=== PATIENT | male | born 2000 | race Caucasian/White ===

== ENCOUNTER 2024-05-24 06:09 | Emergency (ER) | payer SELFPAY ==
[2024-05-24] VITALS (15 sets, daily range): BP systolic 114–131; BP diastolic 69–88; PULSE 53–74; RESP 14–16; TEMP 37.2; O2SAT 96–100
--- NOTE | ~2024-05-24 | CT_ITS ---
Non-contrast CT scan of the Abdomen and Pelvis Clinical indication: Left flank pain Technique: 2.5 mm axial scans were obtained through the abdomen and pelvis without intravenous or or al contrast. Dose reduction technique was used on this scan by utilizing automated exposure control a nd iterative reconstruction technique. The dose-length product (DLP) was 275.47 mGy-cm. Findings: Images through the lung bases reveal no abnormalities. There is no evidence of renal or ureteral calculi. The kidneys and the ureters are nondilated. The liver, spleen, pancreas, and adrenals appear normal. Cholecystectomy clips are present. There is no aortic aneurysm. There is no evidence of bowel obstruction. Questionable mild wall thickening of the distal sigmoid/re ctum versus underdistention. Images through the pelvis were performed. There is no evidence of ascites or lymphadenopathy. Urinary bladder unremarkable. No pelvic mass seen. Impression: No renal or ureteral stone evident. No hydronephrosis. Questionable mild wall thickening of distal sigmoid colon/rectum. Correlate for infectious/inflammato ry colitis. Reviewed, dictated and finalized at location . Impression: No renal or ureteral stone evident. No hydronephrosis. Questionable mild wall thickening of distal sigmoid colon/rectum. Correlate for infectious/inflammatory colitis.
--- NOTE | 2024-05-24 06:17 | ED.ABDPAIN ---
HPI - Abdominal Pain General Chief Complaint: Abdominal Pain <Marlo Frank MD - Last Filed: 05/24/24 07:09> Stated Complaint: Kidney stone <Marlo Frank MD - Last Filed: 05/24/24 07:09> Time Seen by Provider: 05/24/24 06:13 <Marlo Frank MD - Last Filed: 05/24/24 07:09> History of Present Illness HPI narrative: This is a 23-year-old male with a past medical history significant for previous kidney stones. He also has a history of abdominal surgeries with a laparoscopic cholecystectomy. Today he presents with sudden onset left flank pain radiating into his left testicle. He states he woke up today at 4 in the morning to walk his dog and noticed a severe pain that originated in his left side back/flank that slowly started radiating into his left testicle. Denies any testicular swelling or penile pain. When he went to use the restroom he noticed that he was not able to fully urinate. Denies any burning with urination, bleeding, hematuria, or concerns for STI exposures. He states this pain resembles his last kidney stone which was 9 years prior. No history of complicated stones requiring intervention and they usually pass on their own according to the patient. Did not take anything prior to arrival. States he feels slightly nauseous and has left flank pain presently. Denies any fever, chills, rigors, chest pain, shortness breast, weakness or fatigue. <Marlo Frank MD - Last Filed: 05/24/24 07:09> Related Data Allergies/Adverse Reactions: Allergies Allergy/AdvReac Type Severity Reaction Status Date / Time No Known Allergies Allergy Verified 05/24/24 06:18 <Marlo Frank MD - Last Filed: 05/24/24 07:09> Review of Systems Review of Systems: As reviewed above in HPI <Marlo Frank MD - Last Filed: 05/24/24 07:09> PMF Family History Family History: Family History Other Cerebrovascular accident Diabetes mellitus Family history of cardiovascular disease Hypertension <Marlo Frank MD - Last Filed: 05/24/24 07:09> Social History Social History: Social History Smoking status: Never smoker Alcohol intake: never <Marlo Frank MD - Last Filed: 05/24/24 07:09> Exam Narrative: GENERAL: Well-appearing and not in any acute distress but endorses moderate amount of pain in his left flank HEAD: [Normocephalic, atraumatic.] EYES: [PERRLA and EOMI.] ENT: Nares clear, no rhinorrhea or epistaxis. Mucous membranes moist. NECK: Supple. CHEST: [Clear to auscultation. No respiratory distress.] HEART: [Regular rate and rhythm]. No murmur heard. [Normal peripheral pulses.] ABDOMEN: [Soft, nondistended], tenderness in the left CVA, left flank, left lower quadrant. No testicular swelling, rashes or penile pain, [No rigidity or guarding] EXTREMITIES: Normal range of motion. [No edema.] SKIN: Warm, dry, no rash. NEURO: [No focal deficits]. Alert and oriented [x3.] PSYCH: [Normal mood and affect.] <Marlo Frank MD - Last Filed: 05/24/24 07:09> Course Course Emergency Course: CHEPE 1145: Patient signed out to me pending urinalysis. Patient had been given multiple L of fluid to make him urinate. Urine came back without evidence of infection and only a couple red blood cells. On re-evaluation patient is resting comfortably. He voiced some concerns about tick exposure as he was at 4 days of basic training down in [place]. Given at dose of doxycycline for Lyme disease prophylaxis. Patient discharged with a presumptive diagnosis kidney stones. Given appropriate medical therapies follow-up. Given return precautions. <Attila Griffin MD - Last Filed: 05/24/24 10:43> Vital Signs Vital signs: Vital Signs Temperature 98.9 F 05/24/24 06:13 Puls
[2024-05-24] MEDS: LACTATED RINGERS 1,000 ML 999 ML IV CONT (06:22)
[2024-05-24] MEDS: HYDROmorphone HCL INJ (*CRX) 1 MG/ML SYR 0.5 MG IV PUSH (06:23)
[2024-05-24] MEDS: ONDANSETRON INJ 4 MG/2 ML VIAL IV PUSH (06:23)
[2024-05-24] MEDS: KETOROLAC 30 MG/ML VIAL (*BKC) IV PUSH (06:23)
[2024-05-24 06:25] LABS: Basophils Percent Auto 0.3 % (0.2-1.2); Eosinophils Absolute Auto 0.2 K/mm3 (0-0.3); Eosinophils Percent Auto 1.4 % (0-4.4); Hematocrit 42.6 % (42.0-52.0); Hemoglobin 14.1 g/dL (14.0-18.0); Immature Granulocyte Absolute 0.04 K/mm3 (0.00-0.031); Immature Granulocyte Percent A 0.3 % (0-0.5); Lymphocytes Absolute Auto 1.78 K/mm3 (0.9-3.2); Lymphocytes Percent Auto 15.3 % (18.3-44.2); Mean Corpuscular HGB Conc 33.1 g/dl (32-36); Mean Corpuscular Hemoglobin 30.5 pg (26-34); Mean Platelet Volume 10.9 fl (7.4-10.4); Monocytes Absolute Auto 1.1 K/mm3 (0.1-0.6); Monocytes Percent Auto 9.1 % (2.6-8.5); Neutrophils Absolute Auto 8.6 K/mm3 (1.3-6.7); Neutrophils Percent Auto 73.6 % (45.5-73.1); Platelet Count Result 198 k/mm3 (150-375); Red Blood Count 4.63 M/mm3 (4.6-6.20); Red Cell Distribution Width 12.2 % (11.5-14.5); White Blood Count 11.6 K/mm3 (4.5-10.0)
[2024-05-24 06:34] LABS: Anion Gap 9 mmol/L (4-12); Blood Urea Nitrogen 12 mg/dL (9-20); Calcium 8.9 mg/dL (8.4-10.2); Carbon Dioxide 27 mmol/L (22-30); Chloride 103 mmol/L (98-107); Estimated CRCL calculation 88 ml/min; Estimated Glomerular Filt Rate > 60; Glucose 100 mg/dL (65-110); Potassium 3.6 mmol/L (3.4-5.0); Sodium 139 mmol/L (137-145)
[2024-05-24] MEDS: SODIUM CHLORIDE 0.9% IV 1,000 ML 999 ML IV CONT (07:21)
[2024-05-24] MEDS: SODIUM CHLORIDE 0.9% IV 2,000 ML 999 ML (08:32)
--- NOTE | 2024-05-24 08:33 | PC.NURSE ---
pt has been bladder scanned mutiple times, 0 mls recorded. bedside US by Dr Griffin, again, no obvious urine. VORB for 2L NS
[2024-05-24] MEDS: DOXYCYCLINE HYCLATE 100 MG TABLET PO (09:41)
[2024-05-24 10:10] LABS: Appearance Urine Clear (Clear); Bacteria Urine None Seen /hpf; Bilirubin Urine Negative (Negative); Blood Urine Trace (Negative); Color Urine Yellow (Yellow); Glucose Urine UA Negative (Negative); Ketones Urine Trace mg/dL (Negative); Leukocyte Esterase Ur Negative LEU/UL (Negative); Mucus Urine Present /lpf; Need Manual Microscopic Reviewed; Nitrate Urine Negative (Negative); Non Pathogenic Casts 0-2; Protein Urine Negative (Negative); Specific Grav Ur 1.028 (1.001-1.035); Squamous Epithelial Cell Urine None Seen /hpf (Few); WBC Urine 0-5 /hpf (0-3); pH Urine 5.5 (5.0-9.0)
[2024-05-24 10:11] LABS: Add Urine Microscopic? YES
== END 2024-05-24 10:53 | disposition home or self-care (01) ==
PROVIDERS: Student in an Organized Health Care Education/Training Program; Emergency Provider Emergency Medicine; PCP Family Medicine
DX: N20.0 Calculus of kidney (principal); R10.9 Unspecified abdominal pain; Z90.49 Acquired absence of other specified parts of digestive tract; Z87.442 Personal history of urinary calculi; R93.3 Abnormal findings on diagnostic imaging of other parts of digestive tract
CPT/HCPCS: 36415; 74176; 80048; 81001; 81003; 85025; 96361; 96374; 96375; 99284; A9270; J1170; J1885; J2405; J7030; J7120

== ENCOUNTER 2025-01-28 10:52 | Outpatient (CLI) | payer OTHER, SELFPAY ==
--- NOTE | ~2025-01-28 | XR_ITS ---
EXAMINATION: XR abdomen/kub 1V DATE: 01/28/2025 11:35 INDICATION: Urinary calculi TECHNIQUE: A supine view of the abdomen was obtained. COMPARISON: CT dated 05/24/2024 FINDINGS: Normal bowel gas pattern. Couple phleboliths in the left hemipelvis. No other calcifications suspicio us for urolithiasis identified in the visualized abdomen or pelvis. Portions the upper poles of the k idneys extend beyond the cephalad margin of the [id number]. IMPRESSION: 1. Couple unchanged phlebolith left hemipelvis. No evident urolithiasis. Portions of the upper poles of the kidneys likely extend beyond the cephalad margin of the [id number]. Reviewed, dictated and finalized at location A. IMPRESSION: 1. Couple unchanged phlebolith left hemipelvis. No evident urolithiasis. Portio ns of the upper poles of the kidneys likely extend beyond the cephalad margin o f the [id number].
== END 2025-01-28 10:53 | disposition home or self-care (01) ==
LOC: MICIMG 10:58
PROVIDERS: PCP Family Medicine; Visit Provider Student in an Organized Health Care Education/Training Program
DX: Z87.442 Personal history of urinary calculi (principal)
CPT/HCPCS: 74018